=== PATIENT | female | born 1970 | race Caucasian/White ===

== ENCOUNTER 2024-03-18 15:13 | Emergency (ER) | payer MEDICAID ==
[~2024-03-18] VITALS: Ht 157.5 cm; Wt 52.3 kg
[~2024-03-18 15:13] MED LIST: CLON-527 PO; DIVA-81 PO; HYDR50CA PO; LEVO150T62 PO; LURA120T PO; LURA80TA PO; ONDA-243 PO; REM15T PO; TRAZ-89 PO
[2024-03-18 15:19] VITALS: BP 121/74; PULSE 66; TEMP 97.9; O2SAT 100
[2024-03-18 16:08] VITALS: RESP 18
== END 2024-03-18 16:10 | disposition left against medical advice (07) ==
LOC: ER 15:14
DX: S90.121A Contusion of right lesser toe(s) without damage to nail, initial encounter (principal); F41.9 Anxiety disorder, unspecified; F32.A Depression, unspecified; F12.90 Cannabis use, unspecified, uncomplicated; Z79.899 Other long term (current) drug therapy; Z79.1 Long term (current) use of non-steroidal anti-inflammatories (NSAID); Z98.51 Tubal ligation status; W23.0XXA Caught, crushed, jammed, or pinched between moving objects, initial encounter; Y93.89 Activity, other specified; Y92.89 Other specified places as the place of occurrence of the external cause; Y99.8 Other external cause status
CPT/HCPCS: 73630; 99283